=== PATIENT | male | born 1960 | race Caucasian/White ===

== ENCOUNTER 2017-04-26 16:07 | Emergency (ER) | payer OTHER ==
[~2017-04-26] VITALS: Ht 175.3 cm; Wt 113.4 kg
--- NOTE | ~2017-04-26 | EKG ---
[address] [place] [address] ELECTROCARDIOGRAM REPORT Name: NELLMILENA III [id number] Admission: 04/26/17 Attend Phys: Discharge: Date of : 62 Report #: [id number] THIS REPORT FOR: //name// [facility] ED Test Date: 2017-04-26 Test Time: 16:19:53 Pat Name: MILENA CAMEJO Department: Room: Gender: Packaging Assembler: Terrie NOBLES : 1960 Requested By: Chuyita Reardon Order Number: [id number] MD: Brenton Cadena Measurements Intervals [place] Rate: 108 P: 65 WA: 169 QRS: 38 QRSD: 96 T: 37 QT: 338 QTc: 453 Interpretive Statements Sinus tachycardia Low voltage, extremity leads Compared to ECG 11/12/2014 11:46:51 No significant change was found Electronically Signed On 04-26-2017 17:43:44 CDT by Brenton Cadena [email or web address] <ELECTRONICALLY SIGNED> By: Brenton Cadena MD, [facility] 04/26/17 1743 1619 1619 Brenton Cadena MD, FACC /EPI
[~2017-04-26 16:07] MED LIST: ALBUTEROL NEB INH; ALBUTEROL2.5 MG/31 INH; ALLEGRA ALLERG180 MG PO; ALLEGRA180 MG PO; ALPRAZOLAM PO; AMBIEN 10 MG TA10 MG PO; AMBIEN 5 MG TABL5 M1 PO; ASTEPRO NASAL SPRAY NS; AUGMENTIN 500-1 EACH PO; AZITHROMYCIN 2250 MG PO; BUPROPION PO; CARISOPRODOL 3350 MG PO; CARISOPRODOL PO; CYMBALTA PO; CYMBALTA60 MG PO; DIAZEPAM 10 MG10 M2 PO; DIAZEPAM 5 MG5 M1 PO; DIAZEPAM 5 MG5 MG PO; FLOMAX0.4 MG PO; FLONASE 0.05%50 MCG NASAL; FLONASE NS; GABAPENTIN100 MG PO; HYDROCODON-ACE1 EAC4; IBUPROFEN 600600 M1 PO; LISINOPRIL10 MG PO; LYRICA 75 MG CA75 MG PO; LYRICA100 MG PO; MULTI VITAMIN1 EACH PO; MULTIVITAMINS PO; NEURONTIN 300300 M1 PO; NORCO 10-325 T1 EACH PO; NORTRIPTYLINE H25 M3 PO; OMEPRAZOLE40 MG PO; OXYCONTIN20 M1 PO; PERCOCET 10-321 EACH PO; PERCOCET 5-3251 EACH PO; PERCOCET 7.5-31 EACH PO; PERCOCET PO; PRILOSEC40 MG PO; PROAIR HFA8.5 GM INH; SOMA PO; SOMA250 MG PO; SYMBICORT160 MCG/4. INH; VITAMIN D32000 UNI1 PO; WELLBUTRIN SR150 MG PO; ZPAK PO
[2017-04-26 16:43] LABS: ABSOLUTE NEUTROPHILS 6.4 thou/uL (1.4-8.2); EOSINOPHILS 2.4 % (0.0-3.0); HEMATOCRIT 40.3 % (42.0-52.0); HEMOGLOBIN 13.4 gm/dL (14.0-18.0); LYMPHOCYTES 32.8 % (24.0-44.0); MCH 30.1 pg (26.0-34.0); MCHC 33.2 g/dL (28.0-37.0); MCV 90.4 fL (80.0-100.0); MONOCYTES 6.7 % (1.0-8.0); PLATELET COUNT 221 thou/uL (150-400); POLYS 57.1 % (36.0-66.0); RBC 4.46 mil/uL (4.50-6.00); RDW 15.1 % (10.5-14.5); WBC 11.3 thou/uL (4.0-11.0)
[2017-04-26 16:55] LABS: ANION GAP 8 mmol/L (7-16); BUN 17 mg/dL (7-18); CALCIUM 9.1 mg/dL (8.5-10.1); CHLORIDE 99 mmol/L (98-107); CO2 29 mmol/L (21-32); GLUCOSE 105 mg/dL (74-106); SODIUM 136 mmol/L (136-145)
[2017-04-26 16:56] LABS: PROTIME 9.7 Seconds (9.3-11.4)
[2017-04-26 17:04] LABS: ALBUMIN 3.3 g/dL (3.4-5.0); SGOT 39 U/L (15-37); SGPT 66 U/L (30-65); TOTAL BILIRUBIN 0.2 mg/dL (<0.1-1.0); TROPONIN-I < 0.04 ng/mL (<0.06)
[2017-04-26] MEDS ORDERED: AZITHROMYCIN 2250 MG PO (18:12)
[2017-04-26 18:14] LABS: URINE BILIRUBIN NEGATIVE (Negative); URINE BLOOD NEGATIVE (Negative); URINE CLARITY CLEAR; URINE COLOR YELLOW; URINE GLUCOSE-RANDOM* NEGATIVE (Negative); URINE KETONES NEGATIVE (Negative); URINE LEUKOCYTES NEGATIVE (Negative); URINE NITRITE NEGATIVE (Negative); URINE PROTEIN (DIPSTICK) NEGATIVE (Negative); URINE UROBILINOGEN 0.2 E.U./dl (0.2-1.0)
[2017-04-26 18:20] VITALS: BP 87/46
[2017-04-26 18:22] LABS: AMP/METHAMP Negative (Negative); BARBITURATES Negative (Negative); BENZODIAZEPINES POSITIVE (Negative); COCAINE Negative (Negative); METHADONE Negative (Negative); OPIATES POSITIVE (Negative); PCP Negative (Negative)
== END 2017-04-26 18:20 | disposition home or self-care (01) ==
LOC: ER 16:07
PROVIDERS: Nurse Practitioner Family
DX: J18.9 Pneumonia, unspecified organism (principal); S09.8XXA Other specified injuries of head, initial encounter; G89.29 Other chronic pain; R10.84 Generalized abdominal pain; R04.0 Epistaxis; M79.7 Fibromyalgia; F41.9 Anxiety disorder, unspecified; J45.909 Unspecified asthma, uncomplicated; K21.9 Gastro-esophageal reflux disease without esophagitis; K51.90 Ulcerative colitis, unspecified, without complications; F17.210 Nicotine dependence, cigarettes, uncomplicated; Z88.6 Allergy status to analgesic agent; Z88.1 Allergy status to other antibiotic agents; Z90.89 Acquired absence of other organs; W01.0XXA Fall on same level from slipping, tripping and stumbling without subsequent striking against object, initial encounter; Y93.89 Activity, other specified; Y92.89 Other specified places as the place of occurrence of the external cause; Y99.8 Other external cause status